=== PATIENT | male | born 2000 | race Two or more races ===

== ENCOUNTER 2021-04-24 07:57 | Emergency (ER) | payer MEDICAID ==
[~2021-04-24] VITALS: Ht 177.8 cm; Wt 85.0 kg
[2021-04-24 09:14] LABS: CLARITY URINE CLEAR (CLEAR); COLOR URINE YELLOW (YELLOW); KETONES URINE NEGATIVE (NEGATIVE); LEUKOCYTE ESTERASE URINE NEGATIVE (NEGATIVE); NITRITE URINE NEGATIVE (NEGATIVE); OCCULT BLOOD URINE NEGATIVE (NEGATIVE); PROTEIN URINE NEGATIVE (NEGATIVE); SPECIFIC GRAVITY URINE 1.018 (1.005-1.030)
[2021-04-24 09:33] LABS: *AMPHETAMINES SCREEN URINE PRESUMTIVE POSITIVE (NEGATIVE); *BARBITURATES SCREEN URINE NEGATIVE (NEGATIVE); *BENZODIAZEPINES SCREEN URINE NEGATIVE (NEGATIVE); *COCAINE SCREEN URINE NEGATIVE (NEGATIVE); METHADONE URINE SCREEN NEGATIVE (NEGATIVE); OPIATES URINE SCREEN NEGATIVE (NEGATIVE); PHENCYCLIDINE URINE SCREEN NEGATIVE (NEGATIVE)
[2021-04-24 09:34] LABS: CANNABINOID URINE SCREEN PRESUMTIVE POSITIVE (NEGATIVE)
[2021-04-24] MEDS ORDERED: LIDOCAINE HCL 1% 20ML VIAL (Pyxis) INJ INFIL ONE (10:00)
[2021-04-24] MEDS ORDERED: CEFTRIAXONE SODIUM 500 MG/VIAL IM ONE (10:00)
[2021-04-24] MEDS ORDERED: DOXY100T2 MT (10:15)
[2021-04-24 10:32] VITALS: BP 110/78
[2021-04-28 04:07] LABS: NEISSERIA GONORRHOEAE NAA Negative (Negative)
== END 2021-04-24 10:35 | disposition home or self-care (01) ==
LOC: ER 07:57
DX: N43.3 Hydrocele, unspecified (principal); F15.10 Other stimulant abuse, uncomplicated; Z11.3 Encounter for screening for infections with a predominantly sexual mode of transmission
CPT/HCPCS: 76870; 80305; 81003; 87086; 87491; 87591; 93976; 96372; 99284; J0696; J3490; Z7610